=== PATIENT | male | born 1960 | race Caucasian/White ===

== ENCOUNTER 2017-04-28 07:00 | Inpatient (IN) | payer OTHER, MEDICARE ==
[~2017-04-28] VITALS: Ht 182.9 cm; Wt 83.9 kg
[~2017-04-28 07:00] MED LIST: ANTABUSE250 M1 PO; CYMBALTA30 M1 PO; FOLIC ACID1 M1 PO; LITHIUM CARBON300 M5 PO; PRIMIDONE50 M1 PO; SEROQUEL100 M1 PO; TRAMADOL HCL50 M1 PO; TRAZODONE HCL100 M1 PO; VITAMIN B-121000 MC3 PO; WELLBUTRIN XL300 M2 PO
[2017-06-06] MEDS ORDERED: SEROQUEL100 M1 PO (13:42)
[2017-06-06] MEDS ORDERED: MIDODRINE HCL2.5 M1 PO (13:43)
[2017-06-06] MEDS ORDERED: THIAMINE HCL50 M1 PO (13:44)
[2017-06-06] MEDS ORDERED: VITAMIN D1000 UNIT PO (13:44)
[2017-06-06] MEDS ORDERED: POTASSIUM99 M1 PO (13:45)
[2017-06-06] MEDS ORDERED: VITAMIN B-650 M2 PO (13:45)
--- NOTE | 2017-06-09 13:52 | Admission Core Measures ---
Acute Coronary Syndrome (CM) ACS Core Measures Acute Coronary Syndrome Diagnosis No Congestive Heart Failure (NEW) CHF Core Measures Congestive Heart Failure Diagnosis No Cerebrovascular Accident (NEW) CVA Core Measures CVA/TIA Diagnosis No Venous Thromboembolism VTE Core Shameka (View Protocol) VTE Risk Factors Surgery No Mechanical VTE Prophylaxis d/t N/A MechProphylax Ordered No VTE Pharm Prophylaxis d/t NA PharmProphylax ordered Problem List As ranked by this Provider includes Assessment & Plan 1. Unilateral primary osteoarthritis, left knee HOME MEDS Home Med List Bupropion HCl (Wellbutrin XL) 300 MG TAB.ER.24H 1 TAB PO QAM BIPOLAR ( Reported) Cholecalciferol (Vitamin D3) (Vitamin D) (Unknown Strength) TABLET (Unknown Dose) PO DAILY SUPPLEMENT (Reported) Disulfiram (Antabuse) 250 MG TABLET 1 TAB PO DAILY MENTAL HEALTH (Reported) Duloxetine Hydrochloride (Cymbalta) 30 MG CAPSULE.DR 3 CAP PO QAM BIPOLAR ( Reported) Folic Acid 1 MG TABLET 1 TAB PO DAILY SUPP (Reported) [place] Carbonate 300 MG TABLET 2 TAB PO QPM BIPOLAR (Reported) Midodrine HCl 2.5 MG TABLET 1 TAB PO BID PRN BP (Reported) Potassium Gluconate (Potassium) (Unknown Strength) TABLET (Unknown Dose) PO DAILY SUPPLEMENT (Reported) Primidone 50 MG TABLET 2 TAB PO QAM TREMORS (Reported) Pyridoxine HCl (Vitamin B-6) (Unknown Strength) TABLET (Unknown Dose) PO DAILY SUPPLEMENT (Reported) Quetiapine Fumarate (Seroquel XR) 300 MG TAB.ER.24H 1 TAB PO QPM MENTAL HEALTH /SLEEP (Reported) Thiamine HCl (Unknown Strength) TABLET (Unknown Dose) PO DAILY SUPPLEMENT ( Reported) Trazodone HCl 100 MG TABLET 1 TAB PO QPM SLEEP (Reported)
[2017-06-09] MEDS ORDERED: COLACE100 M1 PO (13:55)
[2017-06-09] MEDS ORDERED: ELIQUIS2.5 M1 PO (13:55)
[2017-06-09] MEDS ORDERED: DILAUDID2 M1 PO (13:55)
[2017-06-09] MEDS ORDERED: MIRALAX17 G1 PO (13:55)
[2017-06-09] MEDS ORDERED: PRILOSEC OTC20 M1 PO (13:55)
--- NOTE | 2017-06-09 14:02 | Patient Discharge Instructions ---
Discharge Instructions General Discharge Information You were seen/treated for: Left knee pain related to unilateral primary osteoarthritis You had these procedures: Left total knee replacement Watch for these problems: Increasing pain despite the use of pain medication Increasing redness, warmth or swelling Drainage of any type from incision Inability to bear weight on operative leg Persistent nausea and vomiting Fever greater than 101.5 degrees Do not soak the wound: Yes No bath, but you may shower: Yes Other wound care: Please keep wound clean and dry. No ointments or lotions of any type on or near incision at any time. No exceptions. Your dressing will be changed by your nurse on the second day after your surgery. Daily dry dressing changes are recommended each day thereafter. Do not soak your wound in a bath at any time until otherwise indicated by your surgeon. You may shower, please dry wound immediately after shower with a clean towel. Special Instructions: Constipation: Pain medication can cause constipation. Dr. Skinner has recommended that you take Colace and miralax each day. You may discontinue this medication if you develop loose stool or diarrhea. If you wish to continue this medication, it is available over the counter. If you are unable to move your bowels after several days, if you are unable to pass gas and are developing bloating, nausea, or vomiting as a result, please contact your doctor. Diet Continue normal diet: Yes Recommended Diet: Regular Activity Full Activity/No Limits: No Activity Self Limited: Yes Pounds, do NOT lift more than: 10 Acute Coronary Syndrome Inclusion Criteria At DC or during hospital stay patient has or had the following: ACS DIAGNOSIS No Discharge Core Measures Meds if any: Prescribed or Continued at Discharge Meds if any: NOT Prescribed or Continued at Discharge Congestive Heart Failure Inclusion Criteria At DC or during hospital stay patient has or had the following: CHF DIAGNOSIS No Discharge Core Measures Meds if any: Prescribed or Continued at Discharge Meds if any: NOT Prescribed or Continued at Discharge Cerebrovascular accident Inclusion Criteria At DC or during hospital stay patient has or had the following: CVA/TIA Diagnosis No Discharge Core Measures Meds if any: Prescribed or Continued at Discharge Meds if any: NOT Prescribed or Continued at Discharge Venous thromboembolism Inclusion Criteria VTE Diagnosis No VTE Type NONE VTE Confirmed by (Test) NONE Discharge Core Measures - Per Current guidelines, there needs to be overlap - treatment for the first 5 days of Warfarin therapy. - If discharged on Warfarin prior to 5 days of - overlap therapy, the patient will need to be - assessed for post discharge needs including - *Post discharge parental anticoagulation - *Warfarin and/or parental anticoagulation education - *Follow up date to check INR post discharge At least 5 days overlap therapy as Inpatient No Meds if any: Prescribed or Continued at Discharge Note: Overlap Therapy is Warfarin and Anticoagulant Meds if any: NOT Prescribed or Continued at Discharge
--- NOTE | 2017-06-09 14:05 | Surgical Discharge Summary ---
Visit Information Visit Dates Admission Date: 06/09/17 Discharge Date: 06/12/17 History of Present Illness Chief Complaint: Left knee pain related to unilateral primary osteoarthritis Surgical History Pertinent Surgical History: non-contributory Review of Systems: See H&P Hospital Course Course Attending Physician: Brando Skinner MD Primary Care Physician: Patient Has No Primary Care Dr Hospital Course: Patient was admitted to the hospital for an elective left total knee replacement. The procedure was tolerated well and patient was transferred to a general surgical floor. Diet was advanced and tolerated and the patient voided spontaneously. The patient was evaluated and treated by physical therapy. At the time of hospital discharge, vital signs were stable, neurovascular status was intact and pain was controlled with the use of oral pain medications. Allergies: Coded Allergies: ibuprofen (RAISES LITHIUM LEVEL 06/07/17) Significant Procedures: Left total knee replacement on 06/09/17 Disposition Summary Disposition Principal Diagnosis: Left knee unilateral primary osteoarthritis Additional Diagnosis: None Discharge Disposition: SNF Discharge Instructions General Discharge Information Code Status: Full Code Patient's Diet: Regular, advance as tolerated Patient's Activity: WBAT Follow-Up Instructions/Appts: Follow up with Dr. Skinner in 2 weeks for staple removal. Please call his office to arrange and/or confirm this appointment. Medications at Discharge Discharge Medications: Continue taking these medications: [place] Carbonate ([place] Carbonate) 300 MG TABLET 2 Tablet ORAL Every night Bupropion HCl (Wellbutrin XL) 300 MG TAB.ER.24H 1 Tablet ORAL Every Morning Duloxetine Hydrochloride (Cymbalta) 30 MG CAPSULE.DR 3 Capsule ORAL Every Morning Trazodone HCl (Trazodone HCl) 100 MG TABLET 1 Tablet ORAL Every night Primidone (Primidone) 50 MG TABLET 2 Tablet ORAL Every Morning Folic Acid (Folic Acid) 1 MG TABLET 1 Tablet ORAL DAILY Disulfiram (Antabuse) 250 MG TABLET 1 Tablet ORAL DAILY Midodrine HCl (Midodrine HCl) 2.5 MG TABLET 1 Tablet ORAL TWICE DAILY as needed for BP Cholecalciferol (Vitamin D3) (Vitamin D) (Unknown Strength) TABLET Unknown Dose ORAL DAILY Thiamine HCl (Thiamine HCl) (Unknown Strength) TABLET Unknown Dose ORAL DAILY Pyridoxine HCl (Vitamin B-6) (Unknown Strength) TABLET Unknown Dose ORAL DAILY Potassium Gluconate (Potassium) (Unknown Strength) TABLET Unknown Dose ORAL DAILY Start taking the following new medications: Apixaban (Eliquis) 2.5 MG TABLET 1 Tablet ORAL TWICE DAILY Qty = 60 No Refills Docusate Sodium (Colace) 100 MG CAPSULE 1 Capsule ORAL TWICE DAILY Qty = 14 No Refills Instructions: DISCONTINUE USE IF YOU DEVELOP LOOSE STOOL OR DIARRHEA Hydromorphone HCl (Dilaudid) 2 MG TABLET 1-2 Tablet ORAL EVERY 4-6 HOURS NEEDED as needed for PAIN Qty = 36 No Refills Polyethylene Glycol 3350 (Miralax) 17 GRAM POWD.PACK 1 Packet ORAL DAILY Qty = 7 No Refills Instructions: dissolve in water, DISCONTINUE USE IF YOU DEVELOP LOOSE STOOL OR DIARRHEA Omeprazole Magnesium (Prilosec Otc) 20 MG TABLET. 1 Tablet ORAL DAILY Qty = 30 No Refills
--- NOTE | 2017-06-09 14:36 | Operative Report ---
Operative/Inv Procedure Report Surgery Date: 06/09/17 Name of Procedure: Left total knee replacement Pre-Operative Diagnosis: Primary left knee DJD Post-Operative Diagnosis: Same Estimated Blood Loss: 50ml to 100ml Surgeon/Marine Equipment Research Engineer: Susanne COON,Brando Dudley Anesthesia: block Operative/Procedure Note Note: Description of Procedure: The patient was taken to the operating room and positively identified. After induction of spinal anesthesia and administration of appropriate pre-operative antibiotics, the patient was positioned supine on the operating room table and all bony prominences were well padded. A well-padded pneumatic tourniquet was placed on the left upper thigh. After performing a surgical timeout, the left lower extremity was prepped and draped in the usual sterile fashion. After exsanguination with Esmarch the tourniquet was inflated to 250mm of mercury. A standard medial parapatellar approach was made to the knee. This was carried down through skin and subcutaneous tissue to the level of the fascia. Meticulous hemostasis was maintained with Bovie electrocautery. The extensor mechanism and patellar retinaculum were opened sharply and the patella was everted. The infrapatellar fat was resected in order to improve exposure. Osteophytes were trimmed from the patella and femoral condyles and the patella was re-everted and tucked laterally. A medial release was performed and the cruciate ligaments were resected. The tibia was then subluxed anteriorly. Utilizing the appropriate extra-medullary guide, the proximal tibia was trimmed perpendicular to the long axis of the tibial shaft. Attention was then turned to the femur. After opening the medullary canal, the distal femoral cut was made in 6 degrees of valgus utilizing the appropriate intra-medullary guide. The extension gap was checked and found to be appropriate. The femur was then sized and the remainder of the femoral cuts were made with a size 6 4-in-1 femoral cutting guide. The flexion gap was checked and found to be symmetric and appropriate. The knee was then trialed with a size 6 femoral component, a size 6 tibial component and a size 11 mm TS polyethylene insert. The patella was trimmed to accept an A 38 patella. This yielded excellent range of motion, stability and patellar tracking. All trial components were removed and the knee was copiously irrigated with sterile saline. All components were cemented into place with [place] Simplex cement. All the components were of the [place] [employer] knee system of the above stated sizes. The knee was again irrigated after cementation. The extensor mechanism and patellar retinaculum were repaired using interrupted #1 vicryl suture. The skin was re-approximated with 2-0 vicryl and closed with neto. A sterile dressing was applied, the tourniquet was deflated, the patient was awakened and taken to the recovery room in satisfactory condition.
--- NOTE | 2017-06-09 17:29 | PN- Orthopedic ---
Subjective Subjective: POST-OP CHECK pt in bed in PACU, tolerating po intake, has not voided yet. spinal wearing off and pt has return of sensation and moter function. pain well controlled. Deneis n/v, cp/sob Objective Vital Signs and I&Os VSS, afebrile gen- NAD resp- coarse breath sounds bilaterally cardiac- RRR abd- soft. NT ext- left knee dressing clean and dry, OnQ in place. no calf tenderness. distal sensory and motor function intact. 2+ left DP pulse Assessment/Plan Assessment/Plan 57yo M SP Left TKA, stable recovering in PACU. cont IVF overnight FU am labs cont caro-op abx for 2 more doses pain management with OnQ, po meds dvt ppx- eliquis, alps, and early ambulation Physical therapy- WBAT with Rolling walker dressing change POD2 reg diet reg home meds DC planning, likely will stay 2 nights then [facility] Core Measures Venous Thromboembolism VTE Risk Factors Surgery No Mechanical VTE Prophylaxis d/t N/A MechProphylax Ordered No VTE Pharm Prophylaxis d/t NA PharmProphylax ordered
[2017-06-09 17:35] VITALS: BP 122/84
[2017-06-09 21:50] VITALS: BP 122/70
[2017-06-10 07:29] VITALS: BP 104/68
[2017-06-10 08:29] LABS: ABSOLUTE BASOPHIL COUNT 0 /CUMM (0.0-0.2); ABSOLUTE EOSINOPHIL COUNT 0 /CUMM (0.0-0.7); ABSOLUTE LYMPH COUNT 0.7 /CUMM (1.2-3.4); ABSOLUTE MONOCYTE COUNT 1.1 /CUMM (0.10-0.60); BASOPHIL % 0 % (0.0-2.0); EOSINOPHIL % 0 % (0-5); HEMATOCRIT 31.4 % (42-52); MEAN CORPUSCULAR HGB CONC 34.4 G/DL (33.0-37.0); MEAN CORPUSCULAR VOLUME 98.9 FL (80.0-94.0); MEAN PLATELET VOLUME 8.4 FL (7.4-10.4); PLATELET COUNT 211 /CUMM (130-400); RED BLOOD CELL CT 3.17 /CUMM (4.70-6.10); WHITE BLOOD CELL COUNT 15.9 /CUMM (4.8-10.8)
--- NOTE | 2017-06-10 08:33 | PN- Orthopedic ---
Subjective Subjective: Difficulty urinating overnight, sc x1, resolved, voiding spontaneously. C/O posterior knee discomfort. Denies chest pain, shortness of breath and difficulty breathing. Denies nausea and vomitting. Has been OOB. Objective Vital Signs and I&Os Vital Signs Date Time Temp Pulse Resp B/P B/P Pulse O2 O2 Flow FiO2 Mean Ox Delivery Rate 06/10 0729 98.0 64 18 104/68 95 06/09 2150 98.2 80 18 122/70 96 Room Air 06/09 1735 97.6 72 18 122/84 97 Room Air Intake & Output 06/10 1600 06/10 0800 06/10 0000 06/09 1600 06/09 0800 06/09 0000 Intake Total 840 1100 Output Total 1350 1000 Balance -510 100 Intake, IV 600 300 Intake, Oral 240 800 Output, Urine 1350 1000 Patient 185 lb Weight Weight Reported by Patient Measurement Method Physical Exam: General: Alert and oriented x3, no acute distress Cardiac: RRR, s1s2 Pulm: Non-labored respiratory effort, cta Abd: non-tender, non-distended Extremities: Moves all extremities, distal sensation grossly intact. Skin warm and well perfused. DP pulses palpable. Bialteral calves soft and non-tender Surgical site: Left knee, dressing dry and intact. On Q in place Assessment/Plan Assessment/Plan This is a 57 year old male, POD 1, s/p L TKR -dc iv fluids -Continue current home meds -eliquis 2.5 bid to start this am for dvt ppx -oob with pt, wbat -diet as tolerated -continue current pain regimen -on Q to be dc'd tomorrow -dressing change tomorrow -anticipate dc to str ([facility]) wednesday -continue bowel regimen will discuss plan of care with Dr. Skinner Core Measures Venous Thromboembolism VTE Risk Factors Surgery No Mechanical VTE Prophylaxis d/t N/A MechProphylax Ordered No VTE Pharm Prophylaxis d/t NA PharmProphylax ordered
[2017-06-10 09:29] LABS: GRANULOCYTE % 88.5 % (42.2-75.2)
[2017-06-10 13:43] VITALS: BP 106/72
[2017-06-10 21:49] VITALS: BP 110/76
[2017-06-11 06:50] VITALS: BP 128/84
--- NOTE | 2017-06-11 08:47 | PN- Orthopedic ---
Subjective Subjective: Patient reports sharp pain behind his knee from the jason wrap, unrelieved with dilaudid, tylneol, morphine. Reports he did not ambulate as well as he would have liked with PT yesterday. He is tolerating a diet an passing flatus. Denies moving his bowels. Anticipating going to rehab tomorrow. Offers no other complaints. Objective Vital Signs and I&Os Vital Signs Date Time Temp Pulse Resp B/P B/P Pulse O2 O2 Flow FiO2 Mean Ox Delivery Rate 06/11 0650 98.6 84 18 128/84 96 06/10 2149 97.9 80 18 110/76 98 Room Air 06/10 1343 97.6 76 19 106/72 98 Room Air 06/10 1136 Room Air Intake & Output 06/11 1600 06/11 0800 06/11 0000 06/10 1600 06/10 0800 06/10 0000 Intake Total 250 500 849 956 7538 Output Total 800 705 590 1617 1000 Balance -550 -200 195 -510 100 Intake, IV 10 75 600 300 Intake, Oral 240 500 720 240 800 Output, Urine 800 767 448 5033 1000 Patient 185 lb Weight Weight Reported by Patient Measurement Method Physical Exam: Gen - resting uncomfortably due to pain Cardiac - S1S2 noted Lungs - CTAB Ext - LLE dressing c/d/i, incision closed with neto healing well with no signs of infection, moderate swelling, no drainage or ecchymosis noted, redressed, moves all extremities, motor an sensory intact, no edema or calf tenderness B/L, teds in place Current Medications: Current Medications Sig/Jonathan Start time Last Medication Dose Route Stop Time Status Admin Acetaminophen 1,000 MG Q6 06/09 1800 DC 06/10 IV 06/10 1201 1159 Apixaban 2.5 MG BID 06/10 899 AC 06/10 PO 2210 Bupropion HCl 300 MG DAILY 06/10 899 AC 06/10 PO 0841 Cyanocobalamin 250 MCG DAILY 06/10 899 AC 06/10 PO 1053 Disulfiram 250 MG DAILY 06/10 899 AC 06/10 PO 0848 Docusate Sodium 100 MG BID 06/09 2100 AC 06/10 PO 2211 Duloxetine HCl 90 MG DAILY 06/10 899 AC 06/10 PO 0842 Folic Acid 1 MG DAILY 06/10 899 AC 06/10 PO 0848 Hydromorphone HCl 2 MG Q4P PRN 06/09 1800 AC PO Hydromorphone HCl 4 MG Q4P PRN 06/09 1800 AC 06/11 PO 0405 [place] Carbonate 600 MG QPM 06/09 2099 AC 06/10 PO 2210 Midodrine 2.5 MG BID 06/09 2099 AC 06/10 PO 2211 Morphine Sulfate 2 MG Q2P PRN 06/09 1800 AC 06/10 IV 1707 Omeprazole 20 MG DAILY AC 06/10 07 AC 06/11 PO 0405 Ondansetron HCl 4 MG Q6P PRN 06/09 1800 AC IV Polyethylene Glycol 17 GM DAILY 06/10 09 AC 06/10 PO 0841 Primidone 100 MG DAILY 06/10 09 AC 06/10 PO 0849 Promethazine HCl 12.5 MG Q6P PRN 06/09 1800 AC IV 06/16 1344 Quetiapine Fumarate 100 MG QPM 06/10 2099 AC 06/10 PO 2211 Trazodone HCl 100 MG AT BEDTIME 06/09 2099 AC 06/10 PO 2210 Results Last 48 Hours of Labs: Laboratory Tests 06/10 0643 Chemistry Sodium (137 - 145 mmol/L) 138 Potassium (3.5 - 5.1 mmol/L) 3.9 Chloride (98 - 107 mmol/L) 107 Carbon Dioxide (22 - 30 mmol/L) 25 Anion Gap (5 - 16) 7 BUN (9 - 20 mg/dL) 10 Creatinine (0.7 - 1.2 mg/dL) 0.8 Estimated GFR (>60 ml/min) > 60 BUN/Creatinine Ratio (7 - 25 %) 12.5 Hematology CBC w Diff NO MAN DIFF REQ WBC (4.8 - 10.8 /CUMM) 15.9 H RBC (4.70 - 6.10 /CUMM) 3.17 L Hgb (14.0 - 18.0 G/DL) 10.8 L Hct (42 - 52 %) 31.4 L MCV (80.0 - 94.0 FL) 98.9 H MCH (27.0 - 31.0 PG) 34.0 H MCHC (33.0 - 37.0 G/DL) 34.4 RDW (11.5 - 14.5 %) 13.0 Plt Count (130 - 400 /CUMM) 211 MPV (7.4 - 10.4 FL) 8.4 Gran % (42.2 - 75.2 %) 88.5 H Lymphocytes % (20.5 - 51.1 %) 4.4 L Monocytes % (1.7 - 9.3 %) 7.1 Eosinophils % (0 - 5 %) 0 Basophils % (0.0 - 2.0 %) 0 Absolute Granulocytes (1.4 - 6.5 /CUMM) 14.0 H Absolute Lymphocytes (1.2 - 3.4 /CUMM) 0.7 L Absolute Monocytes (0.10 - 0.60 /CUMM) 1.1 H Absolute Eosinophils (0.0 - 0.7 /CUMM) 0 Absolute Basophils (0.0 - 0.2 /CUMM) 0 Assessment/Plan Assessment/Plan 57 M POD 2 s/p L TKR Cont reg diet Cont pain regimen, add ms ramandeep Cristina, teds, alps - dvt ppx OOB w/ PT, WBAT Cont dry daily dressing changes Bowel regimen on board Home meds on board D/c to STR tomorrow Core Measures Venous Thromboembolism VTE Risk Factors Surgery No Mechanical VTE Prophylaxis d/t N/A MechProphylax Ordered No VTE Pharm Prophylaxis d/t NA PharmProphylax ordered
[2017-06-11 12:16] VITALS: BP 104/62
[2017-06-11 14:13] VITALS: BP 120/60
[2017-06-11 21:26] VITALS: BP 98/64
[2017-06-11 22:41] VITALS: BP 106/60
[2017-06-12 00:47] VITALS: BP 98/68
[2017-06-12 06:00] VITALS: BP 100/58
--- NOTE | 2017-06-12 07:58 | PN- Orthopedic ---
See Addendum Subjective Subjective: Patient reports improved pain control with ms sabillon. Tolerating a diet, voiding spontanously, passing flatus, denies having a BM. Recieved a dulcolax supp this morning. Feels ready to go to STR today. Offer no other complaints. Objective Vital Signs and I&Os Vital Signs Date Time Temp Pulse Resp B/P B/P Pulse O2 O2 Flow FiO2 Mean Ox Delivery Rate 06/12 0600 98.2 82 20 100/58 94 Room Air 06/12 0047 98.4 78 20 98/68 94 Room Air 06/11 2241 106/60 06/11 2126 98.5 81 20 98/64 91 06/11 1413 97.5 79 20 120/60 100 Room Air 06/11 1216 88 104/62 06/11 1147 Room Air Intake & Output 06/12 0800 06/12 0000 06/11 1600 06/11 0800 06/11 0000 06/10 1600 Intake Total 240 480 720 250 500 795 Output Total 400 275 600 800 700 600 Balance -160 205 120 -550 -200 195 Intake, IV 10 75 Intake, Oral 240 480 720 240 500 720 Output, Urine 400 275 600 800 700 600 Physical Exam: Gen - resting comfortably in nad Cardiac - S1S2 noted Lungs - CTAB Ext - left knee dressing c/d/i, neto well-approximated healing well with no signs of infection, mild swelling, appropriately tender, redressed, moves all extremities, motor an sensory intact, teds in place, no edema or calf tenderness B/L Assessment/Plan Assessment/Plan 57 M POD 2 s/p L TKR, recovering well and stable for discharge Cont regular diet Cont pain regimen OOB w/ rw, WBAT DVT ppx - eliquis bid Bowel regimen on board Home meds on board Cont dry daily dressing changes Encourage IS Appreciate medicines involvement D/c str today pending BM Will d/w Dr. Núñez Core Measures Venous Thromboembolism VTE Risk Factors Surgery No Mechanical VTE Prophylaxis d/t N/A MechProphylax Ordered No VTE Pharm Prophylaxis d/t NA PharmProphylax ordered
[2017-06-12] MEDS ORDERED: MS CONTIN15 M3 PO (08:02)
[2017-06-12 15:19] VITALS: BP 100/60
== END 2017-06-12 15:30 | DRG 470 ==
LOC: SDA 06-09 00:49 → ENRESERV 06-09 15:42 → ENTRNSPT 06-09 17:15 → CMPTRNSPT 06-09 17:20 → 2NB 06-09 17:38 → ENPENDDIS 06-12 11:26 → ENTRNSPT 06-12 15:16 → EDTRNSPTSTS 06-12 15:19 → 2NB 06-12 15:30 → CMPTRNSPT 06-12 15:38
PROVIDERS: Nurse Practitioner
PROC: 0SRD0J9 Replacement of Left Knee Joint with Synthetic Substitute, Cemented, Open Approach (ICD-10-PCS; principal; 2017-06-09)
PROC: 3E0T3BZ Introduction of Anesthetic Agent into Peripheral Nerves and Plexi, Percutaneous Approach (ICD-10-PCS; 2017-06-09)
DX: M17.12 Unilateral primary osteoarthritis, left knee (principal); R56.9 Unspecified convulsions; F31.9 Bipolar disorder, unspecified; Z88.6 Allergy status to analgesic agent; Z87.891 Personal history of nicotine dependence
CPT/HCPCS: 2NBSP; 36592; 82436; 97110-GO; 97116-GO; 97161-GP; 97530-GO; C1713; J0131; J0690; J2405; J2550; J2795; J3490; J7042